=== PATIENT | male | born 1990 | race Caucasian/White ===

== ENCOUNTER 2025-05-02 23:44 | Emergency (ER) | payer MEDICAID ==
[~2025-05-02] VITALS: Ht 170.2 cm; Wt 85.0 kg
[2025-05-02 23:54] VITALS: O2SAT 99
[2025-05-03] MEDS: KETOROLAC 30MG/ML VIAL IM ONE (02:30)
[2025-05-03] MEDS: BACITRACIN ZINC OINT UDPKT TOP ONE (02:31)
[2025-05-03] MEDS ORDERED: SULF1TAB48 MT (03:02)
[2025-05-03] MEDS ORDERED: IBUP-2030 MT (03:02)
[2025-05-03] MEDS ORDERED: CEPH500T MT (03:02)
[2025-05-03 03:14] VITALS: BP 128/98; PULSE 94; RESP 18; TEMP 36.6; O2SAT 99
== END 2025-05-03 03:16 | disposition home or self-care (01) ==
LOC: ER 23:44
DX: L03.319 Cellulitis of trunk, unspecified (principal); Z90.49 Acquired absence of other specified parts of digestive tract
CPT/HCPCS: 99283; 96372; J1885; Z7610